=== PATIENT | male | born 1975 | race African-American/Black ===

== ENCOUNTER 2022-03-03 05:37 | Emergency (ER) | payer BC ==
[2022-03-03] MEDS ORDERED: Amoxicillin/Clavulanate K 875-125 MG Tab PO ONE (06:16)
[2022-03-03] MEDS ORDERED: Ibuprofen 600 MG Tab PO ONE (06:17)
[2022-03-03 06:30] VITALS: BP 110/72; PULSE 70
== END 2022-03-03 06:27 | disposition home or self-care (01) ==
LOC: MW.ED 05:37
DX: R59.9 Enlarged lymph nodes, unspecified (principal); Z79.899 Other long term (current) drug therapy
CPT/HCPCS: 99283; A9270

== ENCOUNTER 2022-05-16 19:27 | Emergency (ER) | payer BC ==
[2022-05-16 20:49] VITALS: BP 136/78
[2022-05-16 21:39] LABS: CORONAVIRUS COVID-19 NAA NEGATIVE (NEGATIVE); INFLUENZA A NAA POSITIVE (NEGATIVE); INFLUENZA B NAA NEGATIVE (NEGATIVE); RESPIRATORY SYNCYTIAL VIR NAA NEGATIVE (NEGATIVE)
[2022-05-16] MEDS ORDERED: Ketorolac 30 MG/ML SDV IM ONE (22:04)
[2022-05-16] MEDS ORDERED: Ondansetron 4 MG Tab.DIS PO ONE (22:04)
[2022-05-16 22:26] VITALS: PULSE 103
== END 2022-05-16 22:25 | disposition home or self-care (01) ==
LOC: MW.ED 19:27
DX: J10.1 Influenza due to other identified influenza virus with other respiratory manifestations (principal); Z20.822 Contact with and (suspected) exposure to COVID-19
CPT/HCPCS: 0241U; 96372; 99283; A9270; J1885

== ENCOUNTER 2024-01-13 10:45 | Day surgery (SDC) | payer BC ==
[2024-01-13] MEDS: Lactated Ringers 1,000 ML IV SCH (11:30)
[2024-01-13] MEDS ORDERED: propofoL 50 ML ONE (13:39)
[2024-01-13] MEDS ORDERED: Lactated Ringers 1,000 ML IV SCH (14:30)
[2024-01-13 14:58] VITALS: BP 102/68; PULSE 76
== END 2024-01-13 15:00 | disposition home or self-care (01) ==
LOC: MW.SDS 10:45
PROVIDERS: ATTEND Surgery
DX: Z12.11 Encounter for screening for malignant neoplasm of colon (principal); Z79.899 Other long term (current) drug therapy
CPT/HCPCS: 45378; J2704; J7120